=== PATIENT | female | born 1955 | race Caucasian/White ===

== ENCOUNTER 2024-06-24 10:29 | Outpatient (CLI) | payer MEDICARE, MEDICAID | END 2024-06-24 10:30 | disposition home or self-care (01) | LOC: BURRAD 10:29 | PROVIDERS: ATTEND Podiatrist Foot & Ankle Surgery | DX: M25.775 Osteophyte, left foot (principal); M19.072 Primary osteoarthritis, left ankle and foot ==

== ENCOUNTER 2025-02-26 15:40 | Outpatient (CLI) | payer OTHER, MEDICAID | END 2025-02-26 15:41 | disposition home or self-care (01) | LOC: BURRAD 15:40 | PROVIDERS: ATTEND Nurse Practitioner Family | DX: R07.81 Pleurodynia (principal); S22.31XA Fracture of one rib, right side, initial encounter for closed fracture | CPT/HCPCS: 71046 ==